=== PATIENT | female | born 1940 | race Two or more races ===

== ENCOUNTER 2021-02-06 17:39 | Inpatient (IN) | payer OTHER, BC ==
[2021-02-06] MEDS ORDERED: SODIUM CHLORIDE 1,000 ML IV STA (18:29)
[2021-02-06] MEDS ORDERED: ACETAMINOPHEN 1000 MG/100 ML VIAL (NON FORMULARY) IVPB ONE (18:44)
[2021-02-06] MEDS ORDERED: PANTOPRAZOLE SODIUM 40 MG in SODIUM CHLORIDE 100 ML IVPB ONE (19:10)
[2021-02-06 19:21] LABS: EPI CELLS 13 /uL (0-25.1); HYALINE CASTS 2 /uL (0-3.1); PH,URINE 5.5 (5.0-8.0); URINE APPEARANCE CLOUDY; URINE BACTERIA 4712 /uL (0-1359); URINE BILIRUBIN NEGATIVE (NEGATIVE); URINE COLOR YELLOW; URINE GLUCOSE (UA) NEGATIVE (NEGATIVE); URINE KETONE NEGATIVE (NEGATIVE); URINE LEUK ESTERASE NEGATIVE (NEGATIVE); URINE NITRITE NEGATIVE (NEGATIVE); URINE PROTEIN 1+ (NEGATIVE); URINE RBC 2 /uL (0-23.9); URINE UROBILINOGEN 0.2 mg/dL (0.2-1.0); URINE WBC 17 /uL (0-25.8)
[2021-02-06 19:54] LABS: INR 1.1 (0.83-1.09); PROTHROMBIN TIME (PATIENT) 13.3 SEC (9.7-13.0)
[2021-02-06 19:56] LABS: ACTIVATED PTT 32.1 SECONDS (25.2-36.5)
[2021-02-06 19:58] LABS: BLOOD UREA NITROGEN 22.1 mg/dL (7-18); CALCIUM 7.9 mg/dL (8.5-10.1)
[2021-02-06 19:59] LABS: ALBUMIN 1.6 g/dl (3.4-5.0)
[2021-02-06 20:00] LABS: MAGNESIUM 1.9 mg/dL (1.8-2.4)
[2021-02-06 20:02] LABS: CREATININE 0.5 mg/dL (0.55-1.3); PHOSPHOROUS 2.6 mg/dL (2.5-4.9)
[2021-02-06 20:04] LABS: BILIRUBIN,TOTAL 0.6 mg/dL (0.2-1); TOT PROT 5.3 g/dl (6.4-8.2)
[2021-02-06 20:06] LABS: BASO % 0.1 % (0-2.0); EOS % 0.1 % (0-4.5); HEMATOCRIT 32.4 % (32.4-45.2); HEMOGLOBIN 11.2 GM/dL (10.7-15.3); LYMPH % 37.9 % (8-40); MCH 34.6 pg (25.7-33.7); MCHC 34.5 g/dl (32.0-36.0); MEAN CELL VOLUME 100.4 fl (80-96); MONO % 4.4 % (3.8-10.2); NEUT % 57.5 % (42.8-82.8); PLATELET COUNT 408 10^3/uL (134-434); RBC 3.23 M/mm3 (3.60-5.2); RDW 17.6 % (11.6-15.6); RETICULOCYTES 2.14 % (0.5-1.5); WHITE BLOOD COUNT 8.8 K/mm3 (4.0-10.0)
[2021-02-06 20:23] LABS: URINE CRYSTALS NONE SEEN /hpf
[2021-02-06] MEDS ORDERED: ACETAMINOPHEN INJECTION 100 ML IVPB ONE (20:26)
[2021-02-07] MEDS ORDERED: ACETAMINOPHEN 325 MG TABLET (FP) PO PRN (01:17)
[2021-02-07] MEDS ORDERED: VANCOMYCIN 1 GM in D5W (PRE-DOCKED) 1,000 MG/250 ML IVPB SCH (03:00)
[2021-02-07] MEDS ORDERED: PANTOPRAZOLE SODIUM 40 MG/100 ML BAG IVPB ONE (03:09)
[2021-02-07] MEDS ORDERED: CLINDAMYCIN 600MG PREMIX IVPB 600 MG/50 ML BAG IVPB SCH (03:30)
[2021-02-07] MEDS ORDERED: MEROPENEM 1 GM VIAL (RESTRICTED TO ID) IVPB ONE ×3 (04:58→18:43)
[2021-02-07] MEDS ORDERED: VANCOMYCIN 1 GRAM (PRE-DOCKED) 1,000 MG/250 ML BAG IVPB ONE (04:59)
[2021-02-07 07:22] LABS: BASO % 0.2 % (0-2.0); EOS % 1.8 % (0-4.5); HEMATOCRIT 26.7 % (32.4-45.2); HEMOGLOBIN 9.1 GM/dL (10.7-15.3); LYMPH % 24.1 % (8-40); MCH 34.4 pg (25.7-33.7); MEAN PLT VOLUME 8.6 fl (7.5-11.1); MONO % 3.1 % (3.8-10.2); NEUT % 70.8 % (42.8-82.8); PLATELET COUNT 328 10^3/uL (134-434); RBC 2.64 M/mm3 (3.60-5.2); RDW 17.6 % (11.6-15.6)
[2021-02-07 07:29] LABS: CALCIUM 7.3 mg/dL (8.5-10.1)
[2021-02-07 07:34] LABS: CREATININE 0.8 mg/dL (0.55-1.3)
[2021-02-07 08:57] LABS: ANISOCYTOSIS 0; MACROCYTOSIS 1+; PLATELET ESTIMATE NORMAL
[2021-02-07] MEDS ORDERED: DEXTROSE 5%-WATER 100 ML IVPB ONE ×2 (12:39→18:44)
[2021-02-07 12:56] LABS: BASO % 0.1 % (0-2.0); EOS % 0.1 % (0-4.5); HEMATOCRIT 24.9 % (32.4-45.2); HEMOGLOBIN 8.5 GM/dL (10.7-15.3); MEAN PLT VOLUME 7.7 fl (7.5-11.1); MONO % 3.9 % (3.8-10.2); NEUT % 69.9 % (42.8-82.8); PLATELET COUNT 329 10^3/uL (134-434); RBC 2.65 M/mm3 (3.60-5.2); RDW 19.7 % (11.6-15.6); WHITE BLOOD COUNT 12.7 K/mm3 (4.0-10.0)
[2021-02-07] MEDS: MEROPENEM 1 GM in DEXTROSE 5%-WATER 100 ML IVPB SCH ×2 (13:00→18:49)
[2021-02-07 13:15] LABS: MEAN CELL VOLUME 94.2 fl (80-96)
[2021-02-07 13:17] LABS: CALCIUM 7.7 mg/dL (8.5-10.1)
[2021-02-07 13:19] LABS: BLOOD UREA NITROGEN 24.4 mg/dL (7-18)
[2021-02-07 13:22] LABS: CREATININE 0.8 mg/dL (0.55-1.3)
[2021-02-07 13:23] LABS: BILIRUBIN,TOTAL 0.8 mg/dL (0.2-1); TOT PROT 5.1 g/dl (6.4-8.2)
[2021-02-07 13:45] LABS: ALBUMIN 2.2 g/dl (3.4-5.0)
[2021-02-07] MEDS: RAMIPRIL 2.5 MG CAPSULE PO SCH (13:50)
[2021-02-07] MEDS ORDERED: VANCOMYCIN 1 GRAM (PRE-DOCKED) 1,000 MG/250 ML BAG IVPB SCH (14:00)
[2021-02-07 16:42] VITALS: BMI 23.8
[2021-02-07] MEDS: ASCORBIC ACID 500 MG TABLET (FP) PO SCH (18:50)
[2021-02-07] MEDS: MULTIVITAMINS THER W-MINERALS COMBO TABLET (FP) PO SCH (18:50)
[2021-02-07 19:23] LABS: BASO % 0.1 % (0-2.0); EOS % 0.1 % (0-4.5); HEMATOCRIT 26.6 % (32.4-45.2); HEMOGLOBIN 9.1 GM/dL (10.7-15.3); MCHC 34.3 g/dl (32.0-36.0); MEAN CELL VOLUME 93.3 fl (80-96); MEAN PLT VOLUME 7.5 fl (7.5-11.1); MONO % 4.3 % (3.8-10.2); NEUT % 68.5 % (42.8-82.8); PLATELET COUNT 357 10^3/uL (134-434); RBC 2.85 M/mm3 (3.60-5.2); WHITE BLOOD COUNT 11.9 K/mm3 (4.0-10.0)
[2021-02-07] MEDS: PANTOPRAZOLE SODIUM 40 MG VIAL IVPUSH SCH (21:57)
[2021-02-07] MEDS: MIRTAZAPINE 15 MG TABLET (FP) PO SCH (21:57)
[2021-02-07 22:45] LABS: INR 1.04 (0.83-1.09); PROTHROMBIN TIME (PATIENT) 12.8 SEC (9.7-13.0)
[2021-02-07 22:48] LABS: ACTIVATED PTT 27.6 SECONDS (25.2-36.5)
[2021-02-08] MEDS ORDERED: MEROPENEM 1 GM VIAL (RESTRICTED TO ID) IVPB ONE ×2 (01:23→09:16)
[2021-02-08] MEDS ORDERED: DEXTROSE 5%-WATER 100 ML IVPB ONE ×2 (01:23→09:16)
[2021-02-08 01:32] LABS: BASO % 0.1 % (0-2.0); HEMATOCRIT 24.7 % (32.4-45.2); HEMOGLOBIN 8.7 GM/dL (10.7-15.3); MCH 32.6 pg (25.7-33.7); MEAN CELL VOLUME 93.1 fl (80-96); MEAN PLT VOLUME 7.9 fl (7.5-11.1); MONO % 5.3 % (3.8-10.2); NEUT % 67.6 % (42.8-82.8); PLATELET COUNT 321 10^3/uL (134-434); RBC 2.65 M/mm3 (3.60-5.2); RDW 20.9 % (11.6-15.6); WHITE BLOOD COUNT 11.1 K/mm3 (4.0-10.0)
[2021-02-08] MEDS: MEROPENEM 1 GM in DEXTROSE 5%-WATER 100 ML IVPB SCH ×3 (01:43→20:13)
[2021-02-08] MEDS ORDERED: VANCOMYCIN 1 GM in D5W (PRE-DOCKED) 1,000 MG/250 ML IVPB SCH (03:00)
[2021-02-08 04:00] LABS: ANISOCYTOSIS 3+; MACROCYTOSIS 3+; PLATELET ESTIMATE NORMAL; ROULEAU 1+
[2021-02-08] MEDS ORDERED: DEXTROSE 5%-NORMAL SALINE 1,000 ML IV SCH ×2 (06:15→08:00)
[2021-02-08 07:30] LABS: BASO % 0.1 % (0-2.0); HEMATOCRIT 23.4 % (32.4-45.2); MCHC 34.3 g/dl (32.0-36.0); MEAN CELL VOLUME 93.3 fl (80-96); MEAN PLT VOLUME 7.7 fl (7.5-11.1); MONO % 3.8 % (3.8-10.2); NEUT % 68.1 % (42.8-82.8); PLATELET COUNT 295 10^3/uL (134-434); RBC 2.51 M/mm3 (3.60-5.2); RDW 20.6 % (11.6-15.6); WHITE BLOOD COUNT 10.9 K/mm3 (4.0-10.0)
[2021-02-08 07:48] LABS: CHLORIDE 106 mmol/L (98-107); SODIUM 138 mmol/L (136-145)
[2021-02-08 07:51] LABS: ANION GAP 9 MMOL/L (8-16); BLOOD UREA NITROGEN 25.8 mg/dL (7-18); CO2 24 mmol/L (21-32); GLUCOSE,RANDOM 65 mg/dL (74-106); MAGNESIUM 1.8 mg/dL (1.8-2.4)
[2021-02-08 07:54] LABS: CREATININE 0.6 mg/dL (0.55-1.3); PHOSPHOROUS 3.1 mg/dL (2.5-4.9); SGOT/AST 23 U/L (15-37); SGPT/ALT 18 U/L (13-61)
[2021-02-08 07:55] LABS: BILIRUBIN,TOTAL 0.6 mg/dL (0.2-1)
[2021-02-08 07:56] LABS: TOT PROT 4.2 g/dl (6.4-8.2)
[2021-02-08 07:58] LABS: ALBUMIN 1.6 g/dl (3.4-5.0); ALK PHOS 83 U/L (45-117); CALCIUM 6.9 mg/dL (8.5-10.1)
[2021-02-08] MEDS: MULTIVITAMINS THER W-MINERALS COMBO TABLET (FP) PO SCH (09:13)
[2021-02-08] MEDS: ASCORBIC ACID 500 MG TABLET (FP) PO SCH (09:14)
[2021-02-08] MEDS: RAMIPRIL 2.5 MG CAPSULE PO SCH (09:14)
[2021-02-08] MEDS: PANTOPRAZOLE SODIUM 40 MG VIAL IVPUSH SCH ×2 (09:20→21:38)
[2021-02-08] MEDS ORDERED: MIDAZOLAM HCL 2 MG/2 ML SINGLE DOSE VIAL IVPUSH ONE (10:43)
[2021-02-08] MEDS ORDERED: DEXTROSE 5%-WATER - 50 ML IVPB ONE (14:57)
[2021-02-08] MEDS ORDERED: cefTRIAXone SODIUM 1 GM VIAL ONE (14:57)
[2021-02-08] MEDS: CEFTRIAXONE 1 GM in DEXTROSE 5%-WATER - 50 ML IVPB SCH (15:00)
[2021-02-08] MEDS: DEXTROSE 5%-NORMAL SALINE 1,000 ML IV SCH (16:00)
[2021-02-08 17:23] LABS: BASO % 0.2 % (0-2.0); EOS % 0.1 % (0-4.5); HEMATOCRIT 34.5 % (32.4-45.2); HEMOGLOBIN 11.9 GM/dL (10.7-15.3); MCH 30.3 pg (25.7-33.7); MCHC 34.4 g/dl (32.0-36.0); MEAN CELL VOLUME 87.9 fl (80-96); MEAN PLT VOLUME 7.7 fl (7.5-11.1); MONO % 3.7 % (3.8-10.2); PLATELET COUNT 276 10^3/uL (134-434); RBC 3.92 M/mm3 (3.60-5.2)
[2021-02-08 18:35] LABS: ANISOCYTOSIS 2+; MACROCYTOSIS 1+; PLATELET ESTIMATE NORMAL
[2021-02-08] MEDS: MIRTAZAPINE 15 MG TABLET (FP) PO SCH (21:37)
[2021-02-09 07:01] LABS: BASO % 0.1 % (0-2.0); EOS % 0.2 % (0-4.5); HEMATOCRIT 34.1 % (32.4-45.2); HEMOGLOBIN 11.7 GM/dL (10.7-15.3); LYMPH % 21.5 % (8-40); MCH 30.5 pg (25.7-33.7); MCHC 34.3 g/dl (32.0-36.0); MEAN CELL VOLUME 89.1 fl (80-96); MEAN PLT VOLUME 7.4 fl (7.5-11.1); MONO % 3.7 % (3.8-10.2); NEUT % 74.5 % (42.8-82.8); PLATELET COUNT 234 10^3/uL (134-434); RBC 3.82 M/mm3 (3.60-5.2); RDW 22.3 % (11.6-15.6); WHITE BLOOD COUNT 10.1 K/mm3 (4.0-10.0)
[2021-02-09 07:23] LABS: CHLORIDE 110 mmol/L (98-107); SODIUM 142 mmol/L (136-145)
[2021-02-09 07:25] LABS: ALBUMIN 1.5 g/dl (3.4-5.0); BLOOD UREA NITROGEN 19.7 mg/dL (7-18); CO2 24 mmol/L (21-32); MAGNESIUM 1.8 mg/dL (1.8-2.4)
[2021-02-09 07:26] LABS: GLUCOSE,RANDOM 95 mg/dL (74-106)
[2021-02-09 07:28] LABS: SGOT/AST 21 U/L (15-37); SGPT/ALT 19 U/L (13-61)
[2021-02-09 07:29] LABS: CREATININE 0.4 mg/dL (0.55-1.3); PHOSPHOROUS 1.8 mg/dL (2.5-4.9)
[2021-02-09 07:30] LABS: BILIRUBIN,TOTAL 0.7 mg/dL (0.2-1); TOT PROT 4.2 g/dl (6.4-8.2)
[2021-02-09 07:31] LABS: ALK PHOS 83 U/L (45-117)
[2021-02-09 07:32] LABS: ANION GAP 8 MMOL/L (8-16); CALCIUM 6.9 mg/dL (8.5-10.1)
[2021-02-09] MEDS ORDERED: POTASSIUM CHLORIDE ORAL LIQUID 20 MEQ/15 ML PO ONE (07:43)
[2021-02-09] MEDS ORDERED: KCL 10 MEQ IVPB 10 MEQ/100 ML INFUS.BAG IVPB SCH (07:45)
[2021-02-09] MEDS ORDERED: MAGNESIUM SULF 50% (8.12 MEQ/2 ML-1 GM VIAL) IVPB ONE (07:51)
[2021-02-09] MEDS ORDERED: POTASSIUM PHOSPHATE 30 MM in SODIUM CHLORIDE 250 ML IVPB ONE (07:52)
[2021-02-09] MEDS ORDERED: POTASSIUM CHLORIDE 20 MEQ PREMIX IVPB 100 ML IVPB ONE (07:52)
[2021-02-09 09:37] LABS: ANISOCYTOSIS 3+; MACROCYTOSIS 1+
[2021-02-09] MEDS ORDERED: PT OWN MED DRAWER 7, Y5N ONE ×4 (09:48→13:17)
[2021-02-09] MEDS ORDERED: cefTRIAXone SODIUM 1 GM VIAL ONE (09:49)
[2021-02-09] MEDS ORDERED: DEXTROSE 5%-WATER - 50 ML IVPB ONE (09:49)
[2021-02-09] MEDS: CEFTRIAXONE 1 GM in DEXTROSE 5%-WATER - 50 ML IVPB SCH (09:54)
[2021-02-09] MEDS: ASCORBIC ACID 500 MG TABLET (FP) PO SCH (09:57)
[2021-02-09] MEDS: MULTIVITAMINS THER W-MINERALS COMBO TABLET (FP) PO SCH (09:57)
[2021-02-09] MEDS: PANTOPRAZOLE SODIUM 40 MG VIAL IVPUSH SCH ×2 (09:57→21:10)
[2021-02-09] MEDS: POTASSIUM CHLORIDE 20 MEQ PREMIX IVPB 100 ML IVPB SCH ×3 (11:04→13:30)
[2021-02-09] MEDS ORDERED: INSULIN (NOVOLOG) ASPART 100 UNITS/ML 10ML VIAL ONE ×2 (13:18→18:35)
[2021-02-09] MEDS: DEXTROSE 5%-NORMAL SALINE 1,000 ML IV SCH (13:31)
[2021-02-09] MEDS: VANCOMYCIN 250 MG/5 ML ORAL SOLUTION PO SCH ×2 (13:31→18:49)
[2021-02-09 16:32] LABS: MAGNESIUM 2.2 mg/dL (1.8-2.4)
[2021-02-09 16:35] LABS: PHOSPHOROUS 3.1 mg/dL (2.5-4.9)
[2021-02-09] MEDS ORDERED: MORPHINE SULFATE 2 MG/ML VIAL IM ONE (19:34)
[2021-02-09] MEDS ORDERED: MORPHINE SULFATE 2 MG/ML VIAL IVPUSH ONE (19:39)
[2021-02-09] MEDS: MIRTAZAPINE 15 MG TABLET (FP) PO SCH (21:10)
[2021-02-09] MEDS ORDERED: MELATONIN 5 MG TABLETS PO ONE (21:46)
[2021-02-09] MEDS ORDERED: QUEtiapine FUMARATE 25 MG TABLET PO ONE (21:47)
[2021-02-10] MEDS: VANCOMYCIN 250 MG/5 ML ORAL SOLUTION PO SCH ×4 (00:52→17:42)
[2021-02-10 06:28] LABS: BASO % 0.2 % (0-2.0); EOS % 0.8 % (0-4.5); HEMATOCRIT 32.8 % (32.4-45.2); HEMOGLOBIN 11.3 GM/dL (10.7-15.3); LYMPH % 29.2 % (8-40); MCH 30.7 pg (25.7-33.7); MCHC 34.5 g/dl (32.0-36.0); MEAN CELL VOLUME 89.2 fl (80-96); MEAN PLT VOLUME 7.6 fl (7.5-11.1); MONO % 2.6 % (3.8-10.2); NEUT % 67.2 % (42.8-82.8); PLATELET COUNT 188 10^3/uL (134-434); RBC 3.68 M/mm3 (3.60-5.2); RDW 21.3 % (11.6-15.6); WHITE BLOOD COUNT 10.3 K/mm3 (4.0-10.0)
[2021-02-10 06:50] LABS: CHLORIDE 111 mmol/L (98-107); SODIUM 142 mmol/L (136-145)
[2021-02-10 06:53] LABS: ANION GAP 8 MMOL/L (8-16); BLOOD UREA NITROGEN 13.5 mg/dL (7-18); CO2 22 mmol/L (21-32); GLUCOSE,RANDOM 94 mg/dL (74-106); MAGNESIUM 1.9 mg/dL (1.8-2.4)
[2021-02-10 06:56] LABS: CREATININE 0.3 mg/dL (0.55-1.3); PHOSPHOROUS 1.5 mg/dL (2.5-4.9); SGOT/AST 18 U/L (15-37); SGPT/ALT 16 U/L (13-61)
[2021-02-10 06:57] LABS: ALBUMIN 1.4 g/dl (3.4-5.0)
[2021-02-10 06:58] LABS: BILIRUBIN,TOTAL 0.4 mg/dL (0.2-1)
[2021-02-10 06:59] LABS: ALK PHOS 84 U/L (45-117)
[2021-02-10 07:07] LABS: CALCIUM 6.5 mg/dL (8.5-10.1)
[2021-02-10] MEDS ORDERED: MAGNESIUM SULF 50% (8.12 MEQ/2 ML-1 GM VIAL) IVPB ONE (07:23)
[2021-02-10] MEDS ORDERED: POTASSIUM PHOSPHATE 30 MM in SODIUM CHLORIDE 250 ML IVPB ONE (08:30)
[2021-02-10] MEDS ORDERED: DEXTROSE 5%-WATER - 50 ML IVPB ONE (10:36)
[2021-02-10] MEDS ORDERED: cefTRIAXone SODIUM 1 GM VIAL ONE (10:36)
[2021-02-10] MEDS: ASCORBIC ACID 500 MG TABLET (FP) PO SCH ×2 (10:52→12:18)
[2021-02-10] MEDS: MULTIVITAMINS THER W-MINERALS COMBO TABLET (FP) PO SCH ×2 (10:52→12:21)
[2021-02-10] MEDS: CEFTRIAXONE 1 GM in DEXTROSE 5%-WATER - 50 ML IVPB SCH (10:56)
[2021-02-10] MEDS: PANTOPRAZOLE SODIUM 40 MG VIAL IVPUSH SCH (10:58)
[2021-02-10] MEDS: D5-NS + 20 MEQ KCL - 20 MEQ/1,000 ML INFUS.BAG IV SCH (11:24)
[2021-02-10] MEDS ORDERED: PT OWN MED DRAWER 7, Y5N ONE (12:15)
[2021-02-10] MEDS ORDERED: SODIUM CHLORIDE 0.9% 500 ML INFUS.BAG IV ONE (14:03)
[2021-02-10] MEDS: MIRTAZAPINE 15 MG TABLET (FP) PO SCH (21:20)
[2021-02-10] MEDS ORDERED: QUEtiapine FUMARATE 25 MG TABLET PO ONE (23:44)
[2021-02-11] MEDS: VANCOMYCIN 250 MG/5 ML ORAL SOLUTION PO SCH ×3 (00:04→11:59)
[2021-02-11] MEDS ORDERED: PT OWN MED DRAWER 7, Y5N ONE ×2 (01:01→23:07)
[2021-02-11 07:22] LABS: BASO % 0.2 % (0-2.0); EOS % 0.4 % (0-4.5); HEMATOCRIT 33.9 % (32.4-45.2); HEMOGLOBIN 11.6 GM/dL (10.7-15.3); LYMPH % 18.9 % (8-40); MCH 30.2 pg (25.7-33.7); MCHC 34.1 g/dl (32.0-36.0); MEAN CELL VOLUME 88.6 fl (80-96); MEAN PLT VOLUME 7.4 fl (7.5-11.1); MONO % 2.3 % (3.8-10.2); NEUT % 78.2 % (42.8-82.8); PLATELET COUNT 163 10^3/uL (134-434); RBC 3.83 M/mm3 (3.60-5.2); RDW 20.9 % (11.6-15.6)
[2021-02-11 07:34] LABS: CHLORIDE 113 mmol/L (98-107); SODIUM 141 mmol/L (136-145)
[2021-02-11 07:41] LABS: ALBUMIN 1.4 g/dl (3.4-5.0); ANION GAP 6 MMOL/L (8-16); CO2 23 mmol/L (21-32)
[2021-02-11 07:42] LABS: BLOOD UREA NITROGEN 11.2 mg/dL (7-18); GLUCOSE,RANDOM 103 mg/dL (74-106); MAGNESIUM 2.2 mg/dL (1.8-2.4)
[2021-02-11 07:44] LABS: CREATININE 0.3 mg/dL (0.55-1.3); SGOT/AST 16 U/L (15-37); SGPT/ALT 16 U/L (13-61)
[2021-02-11 07:45] LABS: BILIRUBIN,TOTAL 0.6 mg/dL (0.2-1); PHOSPHOROUS 2.2 mg/dL (2.5-4.9)
[2021-02-11 07:47] LABS: ALK PHOS 94 U/L (45-117)
[2021-02-11 07:51] LABS: CALCIUM 6.4 mg/dL (8.5-10.1)
[2021-02-11] MEDS ORDERED: SODIUM CHLORIDE 0.9% 500 ML INFUS.BAG IV ONE (07:57)
[2021-02-11] MEDS ORDERED: cefTRIAXone SODIUM 1 GM VIAL ONE (10:20)
[2021-02-11] MEDS ORDERED: DEXTROSE 5%-WATER - 50 ML IVPB ONE (10:21)
[2021-02-11] MEDS: CEFTRIAXONE 1 GM in DEXTROSE 5%-WATER - 50 ML IVPB SCH (10:23)
[2021-02-11] MEDS: ASCORBIC ACID 500 MG TABLET (FP) PO SCH (10:23)
[2021-02-11] MEDS: PANTOPRAZOLE 40 MG TABLET PO SCH (10:23)
[2021-02-11] MEDS: MULTIVITAMINS THER W-MINERALS COMBO TABLET (FP) PO SCH (10:23)
[2021-02-11 11:43] LABS: ANISOCYTOSIS 1+; MACROCYTOSIS 0; OVALOCYTE 1+; PLATELET ESTIMATE NORMAL; TEAR DROP CELLS 1+
[2021-02-11] MEDS ORDERED: INSULIN (NOVOLOG) ASPART 100 UNITS/ML 10ML VIAL ONE (17:00)
[2021-02-11] MEDS: D5-NS + 20 MEQ KCL - 20 MEQ/1,000 ML INFUS.BAG IV SCH (17:06)
[2021-02-11] MEDS: SODIUM CHLORIDE 1,000 ML IV SCH (17:08)
[2021-02-11] MEDS: AMINO ACIDS/PROTEIN HYDROLYS 30 ML LIQUID.PKT PO SCH (17:08)
[2021-02-11] MEDS: MIRTAZAPINE 15 MG TABLET (FP) PO SCH (22:00)
[2021-02-12] MEDS: VANCOMYCIN 250 MG/5 ML ORAL SOLUTION PO SCH ×5 (06:12→17:34)
[2021-02-12 07:33] LABS: BASO % 0.1 % (0-2.0); EOS % 0.5 % (0-4.5); HEMATOCRIT 36.6 % (32.4-45.2); HEMOGLOBIN 12.4 GM/dL (10.7-15.3); LYMPH % 24.5 % (8-40); MCH 30.7 pg (25.7-33.7); MCHC 33.8 g/dl (32.0-36.0); MEAN CELL VOLUME 90.8 fl (80-96); MEAN PLT VOLUME 8.2 fl (7.5-11.1); MONO % 2.7 % (3.8-10.2); NEUT % 72.2 % (42.8-82.8); PLATELET COUNT 146 10^3/uL (134-434); RBC 4.03 M/mm3 (3.60-5.2); RDW 21.3 % (11.6-15.6); WHITE BLOOD COUNT 10.8 K/mm3 (4.0-10.0)
[2021-02-12 07:48] LABS: CHLORIDE 116 mmol/L (98-107); SODIUM 142 mmol/L (136-145)
[2021-02-12 07:50] LABS: ALBUMIN 1.4 g/dl (3.4-5.0); ANION GAP 3 MMOL/L (8-16); BLOOD UREA NITROGEN 11.9 mg/dL (7-18); CO2 23 mmol/L (21-32); GLUCOSE,RANDOM 81 mg/dL (74-106); MAGNESIUM 1.9 mg/dL (1.8-2.4)
[2021-02-12 07:53] LABS: CREATININE 0.2 mg/dL (0.55-1.3); SGOT/AST 14 U/L (15-37); SGPT/ALT 15 U/L (13-61)
[2021-02-12 07:55] LABS: BILIRUBIN,TOTAL 0.7 mg/dL (0.2-1); TOT PROT 4.2 g/dl (6.4-8.2)
[2021-02-12 07:56] LABS: ALK PHOS 95 U/L (45-117)
[2021-02-12 07:58] LABS: CALCIUM 6.4 mg/dL (8.5-10.1); PHOSPHOROUS 0.7 mg/dL (2.5-4.9)
[2021-02-12] MEDS ORDERED: POTASSIUM PHOSPHATE 30 MM in SODIUM CHLORIDE 250 ML IVPB ONE (09:30)
[2021-02-12] MEDS ORDERED: cefTRIAXone SODIUM 1 GM VIAL ONE (10:38)
[2021-02-12] MEDS ORDERED: DEXTROSE 5%-WATER - 50 ML IVPB ONE (10:38)
[2021-02-12] MEDS: AMINO ACIDS/PROTEIN HYDROLYS 30 ML LIQUID.PKT PO SCH ×2 (10:40→17:28)
[2021-02-12] MEDS: PANTOPRAZOLE 40 MG TABLET PO SCH (10:42)
[2021-02-12] MEDS: MULTIVITAMINS THER W-MINERALS COMBO TABLET (FP) PO SCH (10:42)
[2021-02-12] MEDS: ASCORBIC ACID 500 MG TABLET (FP) PO SCH (10:42)
[2021-02-12] MEDS: CEFTRIAXONE 1 GM in DEXTROSE 5%-WATER - 50 ML IVPB SCH (10:42)
[2021-02-12] MEDS ORDERED: PT OWN MED DRAWER 7, Y5N ONE (12:24)
[2021-02-12] MEDS: SODIUM CHLORIDE 1,000 ML IV SCH (17:28)
[2021-02-12] MEDS: MIRTAZAPINE 15 MG TABLET (FP) PO SCH (22:00)
[2021-02-13] MEDS: VANCOMYCIN 250 MG/5 ML ORAL SOLUTION PO SCH ×4 (06:36→17:29)
[2021-02-13 08:20] LABS: HEMATOCRIT 37.9 % (32.4-45.2); HEMOGLOBIN 12.7 GM/dL (10.7-15.3); MCH 30.8 pg (25.7-33.7); MCHC 33.5 g/dl (32.0-36.0); MEAN CELL VOLUME 91.8 fl (80-96); MEAN PLT VOLUME 8.5 fl (7.5-11.1); PLATELET COUNT 156 10^3/uL (134-434); RBC 4.13 M/mm3 (3.60-5.2); RDW 21.4 % (11.6-15.6); WHITE BLOOD COUNT 11.5 K/mm3 (4.0-10.0)
[2021-02-13] MEDS ORDERED: cefTRIAXone SODIUM 1 GM VIAL ONE (08:38)
[2021-02-13] MEDS ORDERED: DEXTROSE 5%-WATER - 50 ML IVPB ONE (08:39)
[2021-02-13 08:41] LABS: CALCIUM 7.1 mg/dL (8.5-10.1)
[2021-02-13 08:42] LABS: BLOOD UREA NITROGEN 17.5 mg/dL (7-18); MAGNESIUM 1.8 mg/dL (1.8-2.4)
[2021-02-13] MEDS: AMINO ACIDS/PROTEIN HYDROLYS 30 ML LIQUID.PKT PO SCH ×2 (08:42→17:28)
[2021-02-13 08:45] LABS: CREATININE 0.4 mg/dL (0.55-1.3); PHOSPHOROUS 1.7 mg/dL (2.5-4.9)
[2021-02-13] MEDS: CEFTRIAXONE 1 GM in DEXTROSE 5%-WATER - 50 ML IVPB SCH (09:02)
[2021-02-13] MEDS: PANTOPRAZOLE 40 MG TABLET PO SCH (09:02)
[2021-02-13] MEDS: ASCORBIC ACID 500 MG TABLET (FP) PO SCH (09:02)
[2021-02-13] MEDS: MULTIVITAMINS THER W-MINERALS COMBO TABLET (FP) PO SCH (09:02)
[2021-02-13] MEDS ORDERED: ADENOSINE 6 MG/2 ML VIAL IVPUSH ONE ×4 (17:36→17:43)
[2021-02-13] MEDS ORDERED: METOPROLOL TARTRATE 5 MG/5 ML VIAL IVPUSH ONE (17:44)
[2021-02-13] MEDS ORDERED: SODIUM CHLORIDE 0.9% 500 ML INFUS.BAG IV ONE (17:49)
[2021-02-13] MEDS ORDERED: dilTIAZem HCL 50 MG/10 ML - 10 ML VIAL IVPUSH ONE (17:50)
[2021-02-13] MEDS ORDERED: dilTIAZem HCL 125 MG/25 ML - 25 ML VIAL ONE (17:56)
[2021-02-13] MEDS ORDERED: AMIODARONE HCL 150 MG/3 ML VIAL IVPUSH ONE (18:02)
[2021-02-13] MEDS ORDERED: AMIODARONE IN DEXTROSE,ISO-OSM 150 MG/100 ML BAG ONE (18:07)
[2021-02-13] MEDS: SODIUM CHLORIDE 1,000 ML IV SCH (18:21)
[2021-02-13] MEDS ORDERED: MAGNESIUM SULF 50% (8.12 MEQ/2 ML-1 GM VIAL) IVPB ONE (18:35)
[2021-02-13] MEDS: METOPROLOL TARTRATE 25 MG TABLET (FP) PO SCH ×2 (19:36→22:55)
[2021-02-13 19:58] LABS: HEMATOCRIT 34.9 % (32.4-45.2); HEMOGLOBIN 11.9 GM/dL (10.7-15.3); MCH 31.1 pg (25.7-33.7); MEAN CELL VOLUME 91.5 fl (80-96); MEAN PLT VOLUME 8.5 fl (7.5-11.1); PLATELET COUNT 151 10^3/uL (134-434); RBC 3.82 M/mm3 (3.60-5.2)
[2021-02-13 19:59] LABS: ADD RBC MORPHOLOGY YES
[2021-02-13 20:32] LABS: CALCIUM 7.3 mg/dL (8.5-10.1)
[2021-02-13 20:33] LABS: ALBUMIN 1.5 g/dl (3.4-5.0); BLOOD UREA NITROGEN 18.8 mg/dL (7-18); MAGNESIUM 1.8 mg/dL (1.8-2.4)
[2021-02-13 20:36] LABS: CREATININE 0.4 mg/dL (0.55-1.3); PHOSPHOROUS 1.6 mg/dL (2.5-4.9)
[2021-02-13 20:37] LABS: TOT PROT 4.3 g/dl (6.4-8.2)
[2021-02-13 20:47] LABS: BILIRUBIN,TOTAL 0.7 mg/dL (0.2-1)
[2021-02-13 21:29] LABS: ANISOCYTOSIS 2+; MACROCYTOSIS 1+; OVALOCYTE 1+; PLATELET ESTIMATE NORMAL
[2021-02-13] MEDS: MIRTAZAPINE 15 MG TABLET (FP) PO SCH (23:26)
[2021-02-14] MEDS: VANCOMYCIN 250 MG/5 ML ORAL SOLUTION PO SCH ×4 (01:00→18:21)
[2021-02-14 06:42] LABS: HEMATOCRIT 33.1 % (32.4-45.2); HEMOGLOBIN 11.2 GM/dL (10.7-15.3); MCHC 33.8 g/dl (32.0-36.0); MEAN CELL VOLUME 91.6 fl (80-96); MEAN PLT VOLUME 8.7 fl (7.5-11.1); PLATELET COUNT 143 10^3/uL (134-434); RBC 3.62 M/mm3 (3.60-5.2); WHITE BLOOD COUNT 11.7 K/mm3 (4.0-10.0)
[2021-02-14] MEDS ORDERED: METOPROLOL TARTRATE 5 MG/5 ML VIAL ONE (06:49)
[2021-02-14 06:54] LABS: BLOOD UREA NITROGEN 20.2 mg/dL (7-18); CALCIUM 7.6 mg/dL (8.5-10.1)
[2021-02-14 06:57] LABS: CREATININE 0.4 mg/dL (0.55-1.3)
[2021-02-14 06:58] LABS: PHOSPHOROUS 1.6 mg/dL (2.5-4.9)
[2021-02-14] MEDS ORDERED: METOPROLOL TARTRATE 5 MG/5 ML VIAL IVPUSH PRN ×2 (07:31→21:46)
[2021-02-14] MEDS: AMINO ACIDS/PROTEIN HYDROLYS 30 ML LIQUID.PKT PO SCH ×2 (08:03→18:21)
[2021-02-14] MEDS: SODIUM CHLORIDE 1,000 ML IV SCH (08:05)
[2021-02-14] MEDS ORDERED: DEXTROSE 5%-WATER - 50 ML IVPB ONE (09:46)
[2021-02-14] MEDS ORDERED: cefTRIAXone SODIUM 1 GM VIAL ONE ×2 (09:46→09:53)
[2021-02-14] MEDS: CEFTRIAXONE 1 GM in DEXTROSE 5%-WATER - 50 ML IVPB SCH (09:55)
[2021-02-14] MEDS: METOPROLOL TARTRATE 25 MG TABLET (FP) PO SCH ×2 (09:56→22:11)
[2021-02-14] MEDS: ASCORBIC ACID 500 MG TABLET (FP) PO SCH (09:56)
[2021-02-14] MEDS: MULTIVITAMINS THER W-MINERALS COMBO TABLET (FP) PO SCH (09:56)
[2021-02-14] MEDS: PANTOPRAZOLE 40 MG TABLET PO SCH (09:56)
[2021-02-14] MEDS ORDERED: PT OWN MED DRAWER 7, Y5N ONE ×3 (13:27→18:19)
[2021-02-14] MEDS ORDERED: ACETAMINOPHEN 325 MG TABLET (FP) PO PRN (21:46)
[2021-02-14] MEDS: MIRTAZAPINE 15 MG TABLET (FP) PO SCH (22:08)
[2021-02-15] MEDS: VANCOMYCIN 250 MG/5 ML ORAL SOLUTION PO SCH ×4 (00:28→18:04)
[2021-02-15] MEDS: PANTOPRAZOLE 40 MG TABLET PO SCH (10:39)
[2021-02-15] MEDS: ASCORBIC ACID 500 MG TABLET (FP) PO SCH (10:39)
[2021-02-15] MEDS: MULTIVITAMINS THER W-MINERALS COMBO TABLET (FP) PO SCH (10:39)
[2021-02-15] MEDS: METOPROLOL TARTRATE 25 MG TABLET (FP) PO SCH ×2 (10:40→21:19)
[2021-02-15] MEDS: AMINO ACIDS/PROTEIN HYDROLYS 30 ML LIQUID.PKT PO SCH ×2 (10:40→18:05)
[2021-02-15] MEDS ORDERED: FUROSEMIDE 20 MG TABLET (FP) PO ONE (14:21)
[2021-02-15] MEDS ORDERED: POTASSIUM CHLORIDE TABS 20 MEQ TABLET.ER (FP) PO ONE (14:21)
[2021-02-15 16:31] LABS: BASO % 0.1 % (0-2.0); EOS % 0.1 % (0-4.5); HEMATOCRIT 40.3 % (32.4-45.2); HEMOGLOBIN 13.1 GM/dL (10.7-15.3); MCH 30.6 pg (25.7-33.7); MCHC 32.5 g/dl (32.0-36.0); MEAN CELL VOLUME 94.2 fl (80-96); MEAN PLT VOLUME 8.7 fl (7.5-11.1); MONO % 4.9 % (3.8-10.2); NEUT % 76.9 % (42.8-82.8); PLATELET COUNT 144 10^3/uL (134-434); RBC 4.27 M/mm3 (3.60-5.2); RDW 21.9 % (11.6-15.6); WHITE BLOOD COUNT 14.9 K/mm3 (4.0-10.0)
[2021-02-15 16:58] LABS: CHLORIDE 118 mmol/L (98-107); SODIUM 143 mmol/L (136-145)
[2021-02-15 17:02] LABS: ALBUMIN 1.7 g/dl (3.4-5.0); BLOOD UREA NITROGEN 22.6 mg/dL (7-18); GLUCOSE,RANDOM 80 mg/dL (74-106); MAGNESIUM < 0.3 mg/dL (1.8-2.4)
[2021-02-15 17:05] LABS: CREATININE 0.5 mg/dL (0.55-1.3); PHOSPHOROUS 2.4 mg/dL (2.5-4.9); SGOT/AST 40 U/L (15-37); SGPT/ALT 22 U/L (13-61)
[2021-02-15 17:07] LABS: BILIRUBIN,TOTAL 1.1 mg/dL (0.2-1)
[2021-02-15 17:17] LABS: ANISOCYTOSIS 2+; MACROCYTOSIS 0; PLATELET ESTIMATE DECREASED; TEAR DROP CELLS 1+
[2021-02-15 17:24] LABS: ALK PHOS 165 U/L (45-117); ANION GAP 24 MMOL/L (8-16); CO2 < 1 mmol/L (21-32)
[2021-02-15] MEDS: NYSTATIN POWDER 100,000 UNITS/GM - 15 GM TOPICAL POWDER TP SCH ×2 (18:04→21:27)
[2021-02-15] MEDS: MIRTAZAPINE 15 MG TABLET (FP) PO SCH (21:20)
[2021-02-16] MEDS: VANCOMYCIN 250 MG/5 ML ORAL SOLUTION PO SCH ×3 (00:45→11:19)
[2021-02-16] MEDS: AMINO ACIDS/PROTEIN HYDROLYS 30 ML LIQUID.PKT PO SCH (08:18)
[2021-02-16] MEDS: METOPROLOL TARTRATE 25 MG TABLET (FP) PO SCH ×2 (10:18→21:26)
[2021-02-16] MEDS: NYSTATIN POWDER 100,000 UNITS/GM - 15 GM TOPICAL POWDER TP SCH (11:18)
[2021-02-16] MEDS: PANTOPRAZOLE 40 MG TABLET PO SCH (11:18)
[2021-02-16] MEDS: MULTIVITAMINS THER W-MINERALS COMBO TABLET (FP) PO SCH (11:19)
[2021-02-16] MEDS: ASCORBIC ACID 500 MG TABLET (FP) PO SCH (11:19)
[2021-02-16 15:00] LABS: BLOOD UREA NITROGEN 27.5 mg/dL (7-18); CALCIUM 8.7 mg/dL (8.5-10.1)
[2021-02-16 15:04] LABS: CREATININE 0.6 mg/dL (0.55-1.3)
[2021-02-16 18:42] LABS: BASO % 0.2 % (0-2.0); EOS % 0.3 % (0-4.5); HEMATOCRIT 37.9 % (32.4-45.2); HEMOGLOBIN 12.3 GM/dL (10.7-15.3); LYMPH % 21.1 % (8-40); MCH 31.1 pg (25.7-33.7); MCHC 32.4 g/dl (32.0-36.0); MEAN CELL VOLUME 95.9 fl (80-96); MEAN PLT VOLUME 9.6 fl (7.5-11.1); MONO % 4.2 % (3.8-10.2); NEUT % 74.2 % (42.8-82.8); PLATELET COUNT 156 10^3/uL (134-434); RBC 3.95 M/mm3 (3.60-5.2); RDW 22.3 % (11.6-15.6)
[2021-02-16] MEDS: MIRTAZAPINE 15 MG TABLET (FP) PO SCH (21:26)
[2021-02-16] MEDS: NYSTATIN 100,000 UNIT/GM TOPICAL CREAM 15 GM TUBE TP SCH (21:29)
[2021-02-17] MEDS: VANCOMYCIN 250 MG/5 ML ORAL SOLUTION PO SCH ×4 (00:30→18:00)
[2021-02-17] MEDS: AMINO ACIDS/PROTEIN HYDROLYS 30 ML LIQUID.PKT PO SCH ×2 (08:00→16:49)
[2021-02-17] MEDS: NYSTATIN 100,000 UNIT/GM TOPICAL CREAM 15 GM TUBE TP SCH ×2 (10:15→21:50)
[2021-02-17] MEDS: MULTIVITAMINS THER W-MINERALS COMBO TABLET (FP) PO SCH (10:16)
[2021-02-17] MEDS: ASCORBIC ACID 500 MG TABLET (FP) PO SCH (10:16)
[2021-02-17] MEDS: PANTOPRAZOLE 40 MG TABLET PO SCH (10:16)
[2021-02-17] MEDS: metoPROLOL SUCCINATE 25 MG TAB.SR.24H (FP) PO SCH (10:17)
[2021-02-17 11:42] LABS: BASO % 0.4 % (0-2.0); EOS % 0.2 % (0-4.5); HEMATOCRIT 33.3 % (32.4-45.2); HEMOGLOBIN 11.3 GM/dL (10.7-15.3); LYMPH % 17.8 % (8-40); MCH 31.4 pg (25.7-33.7); MCHC 33.9 g/dl (32.0-36.0); MEAN CELL VOLUME 92.6 fl (80-96); MEAN PLT VOLUME 8.7 fl (7.5-11.1); MONO % 4.3 % (3.8-10.2); NEUT % 77.3 % (42.8-82.8); PLATELET COUNT 153 10^3/uL (134-434); RBC 3.59 M/mm3 (3.60-5.2); WHITE BLOOD COUNT 11.5 K/mm3 (4.0-10.0)
[2021-02-17 12:02] LABS: ALBUMIN 1.6 g/dl (3.4-5.0); BLOOD UREA NITROGEN 30.2 mg/dL (7-18); CALCIUM 8.4 mg/dL (8.5-10.1)
[2021-02-17 12:05] LABS: CREATININE 0.5 mg/dL (0.55-1.3)
[2021-02-17 12:07] LABS: TOT PROT 4.5 g/dl (6.4-8.2)
[2021-02-17] MEDS: AMINO ACIDS 4.25%/D5W 1,000 ML IV SCH (16:49)
[2021-02-17] MEDS: MIRTAZAPINE 15 MG TABLET (FP) PO SCH (21:50)
[2021-02-18] MEDS: metoPROLOL SUCCINATE 25 MG TAB.SR.24H (FP) PO SCH (09:50)
[2021-02-18] MEDS: AMINO ACIDS/PROTEIN HYDROLYS 30 ML LIQUID.PKT PO SCH ×2 (09:56→17:24)
[2021-02-18] MEDS: MULTIVITAMINS THER W-MINERALS COMBO TABLET (FP) PO SCH (09:57)
[2021-02-18] MEDS: PANTOPRAZOLE 40 MG TABLET PO SCH (09:57)
[2021-02-18] MEDS: NYSTATIN 100,000 UNIT/GM TOPICAL CREAM 15 GM TUBE TP SCH (09:57)
[2021-02-18] MEDS: ASCORBIC ACID 500 MG TABLET (FP) PO SCH (09:58)
[2021-02-18] MEDS ORDERED: ASPIRIN SUPPOSITORY 600 MG SUPP.RECT RC SCH (13:45)
[2021-02-18] MEDS: VANCOMYCIN 250 MG/5 ML ORAL SOLUTION PO SCH ×2 (14:34→17:23)
[2021-02-18] MEDS ORDERED: PT OWN MED DRAWER 7, Y5N ONE (15:29)
[2021-02-18] MEDS: AMINO ACIDS 4.25%/D5W 1,000 ML IV SCH (15:59)
[2021-02-18 19:13] VITALS: BP 134/72; PULSE 107; TEMP 98.6
== END 2021-02-18 19:35 | DRG 377 ==
LOC: JER 17:39 → JERBED 02-07 01:01 → JICU 02-07 11:18 → J4W 02-14 21:51
PROVIDERS: ADMIT Internal Medicine; ATTEND Family Medicine
PROC: 30233K1 Transfusion of Nonautologous Frozen Plasma into Peripheral Vein, Percutaneous Approach (ICD-10-PCS; 2021-02-07)
PROC: 30233R1 Transfusion of Nonautologous Platelets into Peripheral Vein, Percutaneous Approach (ICD-10-PCS; 2021-02-07)
PROC: 05HM33Z Insertion of Infusion Device into Right Internal Jugular Vein, Percutaneous Approach (ICD-10-PCS; principal; 2021-02-08)
PROC: B543ZZA Ultrasonography of Right Jugular Veins, Guidance (ICD-10-PCS; 2021-02-08)
PROC: 30233N1 Transfusion of Nonautologous Red Blood Cells into Peripheral Vein, Percutaneous Approach (ICD-10-PCS; 2021-02-08)
DX: K62.5 Hemorrhage of anus and rectum (principal); L89.154 Pressure ulcer of sacral region, stage 4; R57.1 Hypovolemic shock; A41.89 Other specified sepsis; I47.1 Supraventricular tachycardia; A04.72 Enterocolitis due to Clostridium difficile, not specified as recurrent; E46 Unspecified protein-calorie malnutrition; R64 Cachexia; M81.0 Age-related osteoporosis without current pathological fracture; I10 Essential (primary) hypertension; F03.90 Unspecified dementia, unspecified severity, without behavioral disturbance, psychotic disturbance, mood disturbance, and anxiety; I95.9 Hypotension, unspecified; F32.9 Major depressive disorder, single episode, unspecified; K62.89 Other specified diseases of anus and rectum; K52.9 Noninfective gastroenteritis and colitis, unspecified; N93.9 Abnormal uterine and vaginal bleeding, unspecified; Z86.718 Personal history of other venous thrombosis and embolism; Z88.0 Allergy status to penicillin; I25.10 Atherosclerotic heart disease of native coronary artery without angina pectoris; E87.6 Hypokalemia; R68.0 Hypothermia, not associated with low environmental temperature; Z86.711 Personal history of pulmonary embolism; E87.70 Fluid overload, unspecified; Z68.23 Body mass index [BMI] 23.0-23.9, adult
CPT/HCPCS: 36415; 36430; 71045-TC-FY; 74174-TC; 74176-TC; 80048; 80053; 81003; 82550; 83735; 84100; 84132; 84484; 85025; 85027; 85045; 85384; 85610; 85730; 86850; 86900; 86901; 86922; 87040; 87086; 87324; 87449; 87804; 93005; 93010; 93306-TC; 99285-25; C9803; J0131; J0282; P9017; P9034; P9058; Q9967; U0003; U0005

== ENCOUNTER 2021-02-23 07:25 | Inpatient (IN) | payer OTHER, BC ==
[2021-02-23] MEDS ORDERED: SODIUM CHLORIDE 1,687 ML IV ONE (08:32)
[2021-02-23] MEDS ORDERED: TRIPLE LUMEN FLUSH 4 ML ML IVPUSH PRN (09:00)
[2021-02-23] MEDS ORDERED: LACTATED RINGERS SOLUTION 1,000 ML/1,000 ML INFUS.BAG IV ONE (09:00)
[2021-02-23] MEDS ORDERED: IMIPENEM/CILASTATIN SODIUM 250 MG in SODIUM CHLORIDE 100 ML IV ONE (09:18)
[2021-02-23] MEDS ORDERED: VANCOMYCIN 1 GM in D5W (PRE-DOCKED) 1,000 MG/250 ML IVPB ONE (09:18)
[2021-02-23 09:23] LABS: VENOUS BASE EXCESS -7.4 mmol/L (-2-2); VENOUS O2 SATURATION 61.7 % (70-80); VENOUS PCO2 36.7 mmHg (38-52); VENOUS PH 7.308 (7.310-7.410)
[2021-02-23 09:31] LABS: EPI CELLS 14 /uL (0-25.1); HYALINE CASTS 38 /uL (0-3.1); URINE APPEARANCE TURBID; URINE BACTERIA 3067 /uL (0-1359); URINE BILIRUBIN 1+ (NEGATIVE); URINE COLOR DK YELLOW; URINE GLUCOSE (UA) NEGATIVE (NEGATIVE); URINE KETONE NEGATIVE (NEGATIVE); URINE LEUK ESTERASE 1+ (NEGATIVE); URINE NITRITE POSITIVE (NEGATIVE); URINE PROTEIN 1+ (NEGATIVE); URINE UROBILINOGEN 0.2 mg/dL (0.2-1.0); URINE WBC 170 /uL (0-25.8)
[2021-02-23] MEDS ORDERED: VANCOMYCIN 1 GRAM (PRE-DOCKED) 1,000 MG/250 ML BAG IVPB ONE (09:32)
[2021-02-23 09:35] LABS: HEMATOCRIT 37.2 % (32.4-45.2); HEMOGLOBIN 12.4 GM/dL (10.7-15.3); MCH 32.1 pg (25.7-33.7); MCHC 33.4 g/dl (32.0-36.0); MEAN CELL VOLUME 95.9 fl (80-96); MEAN PLT VOLUME 9.7 fl (7.5-11.1); PLATELET COUNT 146 10^3/uL (134-434); RBC 3.88 M/mm3 (3.60-5.2); RDW 24.8 % (11.6-15.6)
[2021-02-23 09:37] LABS: INR 1.26 (0.83-1.09); PROTHROMBIN TIME (PATIENT) 15.4 SEC (9.7-13.0)
[2021-02-23 09:39] LABS: ACTIVATED PTT 31.6 SECONDS (25.2-36.5)
[2021-02-23 09:49] LABS: URINE RBC 106.5 /uL (0-23.9)
[2021-02-23 09:53] LABS: ALBUMIN 1.4 g/dl (3.4-5.0); CALCIUM 8.2 mg/dL (8.5-10.1)
[2021-02-23 09:56] LABS: CREATININE 1.2 mg/dL (0.55-1.3)
[2021-02-23 09:58] LABS: TOT PROT 4.5 g/dl (6.4-8.2)
[2021-02-23] MEDS ORDERED: NOREPINEPHRINE BITARTRATE 4 MG/4 ML ML IV ONE (09:59)
[2021-02-23] MEDS ORDERED: NOREPINEPHRINE BITARTRATE 8,000 MCG in DEXTROSE 5%-WATER - 492 ML IV SCH (10:00)
[2021-02-23 10:09] LABS: BLOOD UREA NITROGEN 58.8 mg/dL (7-18); LACTIC ACID 4.6 mmol/L (0.4-2.0)
[2021-02-23 10:14] LABS: ANISOCYTOSIS 1+; MACROCYTOSIS 1+; PLATELET ESTIMATE DECREASED
[2021-02-23 10:16] LABS: WHITE BLOOD COUNT 7.5 K/mm3 (4.0-10.0)
[2021-02-23 10:23] LABS: URINE CRYSTALS CA OXALATE FEW /hpf
[2021-02-23] MEDS: KCL 10 MEQ IVPB 10 MEQ/100 ML INFUS.BAG IVPB SCH ×2 (12:00→13:00)
[2021-02-23] MEDS ORDERED: REMDESIVIR 200 MG in SODIUM CHLORIDE 250 ML IVPB ONE (14:00)
[2021-02-23] MEDS ORDERED: VASOPRESSIN 40 UNITS/100 ML BAG ONE (14:03)
[2021-02-23 16:30] LABS: LACTIC ACID 3.2 mmol/L (0.4-2.0)
[2021-02-23] MEDS: ENOXAPARIN NA (PORCINE) 40 MG/0.4 ML DISP.SYRIN SQ SCH (16:32)
[2021-02-23] MEDS: DEXAMETHASONE SOD PHOSPHATE 4 MG/1 ML VIAL IVPUSH SCH (16:33)
[2021-02-23] MEDS: LACTATED RINGERS SOLUTION 1,000 ML/1,000 ML INFUS.BAG IV SCH (16:33)
[2021-02-23] MEDS ORDERED: MEROPENEM 1 GM VIAL (RESTRICTED TO ID) IVPB ONE (18:25)
[2021-02-23] MEDS ORDERED: DEXTROSE 5%-WATER 100 ML IVPB ONE (18:26)
[2021-02-23] MEDS: MEROPENEM 1 GM in DEXTROSE 5%-WATER 100 ML IVPB SCH (19:17)
[2021-02-23] MEDS: MUPIROCIN 2% TOPICAL OINTMENT FOR DECOLONIZATION NS SCH ×2 (20:11→21:11)
[2021-02-23] MEDS: CHLORHEXIDINE GLUCONATE 4% CLEANSER FOR DECOLONIZATION TP SCH (21:11)
[2021-02-23 21:20] LABS: LACTIC ACID 2.8 mmol/L (0.4-2.0)
[2021-02-24] MEDS ORDERED: MEROPENEM 1 GM VIAL (RESTRICTED TO ID) IVPB ONE ×3 (01:27→17:50)
[2021-02-24] MEDS ORDERED: DEXTROSE 5%-WATER 100 ML IVPB ONE ×3 (01:28→17:50)
[2021-02-24] MEDS: MEROPENEM 1 GM in DEXTROSE 5%-WATER 100 ML IVPB SCH ×2 (06:05→17:59)
[2021-02-24 06:46] LABS: HEMATOCRIT 39.5 % (32.4-45.2); HEMOGLOBIN 13.1 GM/dL (10.7-15.3); MCH 32.2 pg (25.7-33.7); MCHC 33.2 g/dl (32.0-36.0); MEAN CELL VOLUME 97.1 fl (80-96); MEAN PLT VOLUME 10.1 fl (7.5-11.1); PLATELET COUNT 99 10^3/uL (134-434); RBC 4.06 M/mm3 (3.60-5.2); RDW 24.8 % (11.6-15.6); WHITE BLOOD COUNT 10.6 K/mm3 (4.0-10.0)
[2021-02-24 07:10] LABS: ALBUMIN 1.4 g/dl (3.4-5.0); CALCIUM 7.5 mg/dL (8.5-10.1); MAGNESIUM 1.7 mg/dL (1.8-2.4)
[2021-02-24 07:13] LABS: CREATININE 0.9 mg/dL (0.55-1.3)
[2021-02-24 07:14] LABS: PHOSPHOROUS 2.9 mg/dL (2.5-4.9)
[2021-02-24 07:15] LABS: BILIRUBIN,TOTAL 0.8 mg/dL (0.2-1); TOT PROT 4.6 g/dl (6.4-8.2)
[2021-02-24] MEDS ORDERED: MAGNESIUM SULF 50% (8.12 MEQ/2 ML-1 GM VIAL) IVPB ONE ×2 (07:28→13:23)
[2021-02-24 08:48] LABS: ANISOCYTOSIS 1+; MACROCYTOSIS 1+; OVALOCYTE 1+; PLATELET ESTIMATE DECREASED
[2021-02-24] MEDS ORDERED: NOREPINEPHRINE BITARTRATE 8,000 MCG in DEXTROSE 5%-WATER - 492 ML IV SCH (09:00)
[2021-02-24] MEDS: ENOXAPARIN NA (PORCINE) 40 MG/0.4 ML DISP.SYRIN SQ SCH (09:03)
[2021-02-24] MEDS: MUPIROCIN 2% TOPICAL OINTMENT FOR DECOLONIZATION NS SCH ×2 (09:03→22:19)
[2021-02-24] MEDS: VANCOMYCIN 1 GRAM (PRE-DOCKED) 1,000 MG/250 ML BAG IVPB SCH (09:03)
[2021-02-24] MEDS: NOREPINEPHRINE BITARTRATE 8,000 MCG/500 ML BAG IVPB SCH (09:41)
[2021-02-24] MEDS ORDERED: LACTATED RINGERS SOLUTION 1000 ML INFUS.BAG IV ONE ×4 (12:28→15:02)
[2021-02-24] MEDS ORDERED: PT OWN MED DRAWER 7, Y5N ONE (12:56)
[2021-02-24] MEDS ORDERED: ACETAMINOPHEN 1000 MG/100 ML VIAL (NON FORMULARY) IVPB PRN ×2 (13:23→14:05)
[2021-02-24] MEDS: DEXAMETHASONE SOD PHOSPHATE 4 MG/1 ML VIAL IVPUSH SCH (13:38)
[2021-02-24] MEDS: LACTATED RINGERS SOLUTION 1,000 ML/1,000 ML INFUS.BAG IV SCH (13:39)
[2021-02-24] MEDS ORDERED: VASOPRESSIN 40 UNITS/100 ML BAG ONE (15:07)
[2021-02-24] MEDS: REMDESIVIR 100 MG in SODIUM CHLORIDE 250 ML IVPB SCH (15:27)
[2021-02-24] MEDS ORDERED: VASOPRESSIN 40 UNITS/100 ML BAG IV SCH ×2 (16:00)
[2021-02-24] MEDS: MORPHINE SULFATE 2 MG/ML VIAL IVPUSH PRN ×2 (17:58→23:09)
[2021-02-24] MEDS ORDERED: MAGNESIUM SULF 50% (8.12 MEQ/2 ML-1 GM VIAL) ONE (18:06)
[2021-02-24] MEDS: CHLORHEXIDINE GLUCONATE 4% CLEANSER FOR DECOLONIZATION TP SCH (22:19)
[2021-02-25] MEDS ORDERED: MEROPENEM 1 GM VIAL (RESTRICTED TO ID) IVPB ONE ×2 (03:41→12:45)
[2021-02-25] MEDS ORDERED: DEXTROSE 5%-WATER 100 ML IVPB ONE ×2 (03:41→12:45)
[2021-02-25] MEDS: MEROPENEM 1 GM in DEXTROSE 5%-WATER 100 ML IVPB SCH (05:34)
[2021-02-25 06:57] LABS: BASO % 0.2 % (0-2.0); HEMATOCRIT 33.4 % (32.4-45.2); LYMPH % 15.6 % (8-40); MCH 32.2 pg (25.7-33.7); MEAN CELL VOLUME 97.5 fl (80-96); MEAN PLT VOLUME 10.4 fl (7.5-11.1); MONO % 1.3 % (3.8-10.2); NEUT % 82.9 % (42.8-82.8); PLATELET COUNT 48 10^3/uL (134-434); RBC 3.43 M/mm3 (3.60-5.2); RDW 26.1 % (11.6-15.6); WHITE BLOOD COUNT 7.4 K/mm3 (4.0-10.0)
[2021-02-25 07:06] LABS: BLOOD UREA NITROGEN 50.9 mg/dL (7-18); CALCIUM 7.2 mg/dL (8.5-10.1); MAGNESIUM 2.1 mg/dL (1.8-2.4)
[2021-02-25 07:10] LABS: CREATININE 0.9 mg/dL (0.55-1.3); PHOSPHOROUS 3.8 mg/dL (2.5-4.9)
[2021-02-25 07:41] LABS: LACTIC ACID 5.8 mmol/L (0.4-2.0)
[2021-02-25] MEDS ORDERED: LACTATED RINGERS SOLUTION 1000 ML INFUS.BAG IV ONE ×2 (08:02→10:24)
[2021-02-25 08:47] LABS: ANISOCYTOSIS 1+; CORRECTED WBC 6.22 K/mm3; MACROCYTOSIS 1+; OVALOCYTE 1+; PLATELET ESTIMATE DECREASED
[2021-02-25] MEDS: MUPIROCIN 2% TOPICAL OINTMENT FOR DECOLONIZATION NS SCH (10:24)
[2021-02-25] MEDS: VANCOMYCIN 1 GRAM (PRE-DOCKED) 1,000 MG/250 ML BAG IVPB SCH (10:25)
[2021-02-25] MEDS: NOREPINEPHRINE BITARTRATE 8,000 MCG/500 ML BAG IVPB SCH (10:32)
[2021-02-25] MEDS ORDERED: VASOPRESSIN 40 UNITS/100 ML BAG IV SCH (11:45)
[2021-02-25] MEDS ORDERED: RAPID SEQUENCE INTUBATION KIT NR ONE (12:10)
[2021-02-25] MEDS ORDERED: MIDAZOLAM IN 0.9 % SOD.CHLORID 1 MG/1 ML PLAST..BAG ONE (12:19)
[2021-02-25] MEDS: DEXAMETHASONE SOD PHOSPHATE 4 MG/1 ML VIAL IVPUSH SCH (12:33)
[2021-02-25] MEDS ORDERED: PT OWN MED DRAWER 7, Y5N ONE (12:49)
[2021-02-25] MEDS ORDERED: MIDAZOLAM 100 MG in SODIUM CHLORIDE 100 ML IVPB SCH (13:00)
[2021-02-25] MEDS ORDERED: DAPTOMYCIN 500 MG in SODIUM CHLORIDE 50 ML IVPB SCH (13:00)
[2021-02-25] MEDS ORDERED: MIDAZOLAM IN 0.9 % SOD.CHLORID 100 MG/100 ML PLAST..BAG IVPB SCH (13:06)
[2021-02-25] MEDS: LACTATED RINGERS SOLUTION 1,000 ML/1,000 ML INFUS.BAG IV SCH (13:13)
[2021-02-25] MEDS ORDERED: fentaNYL CITRATE 250 MCG/5 ML VIAL IVPUSH ONE (13:15)
[2021-02-25] MEDS ORDERED: MEROPENEM 1 GM in DEXTROSE 5%-WATER 100 ML IVPB SCH (14:00)
[2021-02-25 14:40] LABS: LACTIC ACID 14.5 mmol/L (0.4-2.0)
[2021-02-25] MEDS: REMDESIVIR 100 MG in SODIUM CHLORIDE 250 ML IVPB SCH (15:11)
[2021-02-25 15:24] VITALS: BMI 27.6
[2021-02-25 15:37] VITALS: BP 66/35; PULSE 79; TEMP 82.4
[2021-02-25] MEDS ORDERED: NOREPINEPHRINE BITARTRATE 16,000 MCG in SODIUM CHLORIDE 484 ML IV SCH (18:00)
[2021-02-25] MEDS ORDERED: NOREPINEPHRINE BITARTRATE 8,000 MCG in SODIUM CHLORIDE 492 ML IV SCH (18:00)
== END 2021-02-25 21:08 | disposition expired | DRG 871 ==
LOC: JER 07:25 → JERBED 10:38 → JICU 12:02
PROVIDERS: ADMIT Family Medicine; ATTEND Family Medicine
PROC: 05HM33Z Insertion of Infusion Device into Right Internal Jugular Vein, Percutaneous Approach (ICD-10-PCS; 2021-02-23)
PROC: B543ZZA Ultrasonography of Right Jugular Veins, Guidance (ICD-10-PCS; 2021-02-23)
PROC: 5A1935Z Respiratory Ventilation, Less than 24 Consecutive Hours (ICD-10-PCS; principal; 2021-02-25)
PROC: 0BH17EZ Insertion of Endotracheal Airway into Trachea, Via Natural or Artificial Opening (ICD-10-PCS; 2021-02-25)
PROC: 5A12012 Performance of Cardiac Output, Single, Manual (ICD-10-PCS; 2021-02-25)
DX: A41.89 Other specified sepsis (principal); L89.154 Pressure ulcer of sacral region, stage 4; R65.21 Severe sepsis with septic shock; J96.01 Acute respiratory failure with hypoxia; U07.1 COVID-19; J12.82 Pneumonia due to coronavirus disease 2019; G93.41 Metabolic encephalopathy; N39.0 Urinary tract infection, site not specified; E87.2 Acidosis; N17.9 Acute kidney failure, unspecified; I24.8 Other forms of acute ischemic heart disease; F03.90 Unspecified dementia, unspecified severity, without behavioral disturbance, psychotic disturbance, mood disturbance, and anxiety; I10 Essential (primary) hypertension; F32.9 Major depressive disorder, single episode, unspecified; E87.6 Hypokalemia; D69.6 Thrombocytopenia, unspecified; D64.9 Anemia, unspecified; I46.9 Cardiac arrest, cause unspecified; I95.9 Hypotension, unspecified; Z88.0 Allergy status to penicillin
CPT/HCPCS: 31500; 36415; 70450-TC; 71045-TC-FY; 71250-TC; 74176-TC; 80048; 80053; 81003; 82272; 82803; 83605; 83735; 84100; 84484; 85025; 85610; 85730; 87040; 87086; 87186; 87324; 87449; 93005; 93010; 99285-25; C9399; C9803; G0480; J0878; J3490; U0003; U0005